=== PATIENT | male | born 1960 | race Caucasian/White ===

== ENCOUNTER 2021-06-22 12:55 | Inpatient (IN) | payer OTHER ==
[2021-06-22] MEDS ORDERED: diazePAM 5 MG TABLET PO PRN (13:10)
[2021-06-22] MEDS ORDERED: MAGNESIUM HYDROX 2400MG/30ML ORAL SUSPENSION 30 ML CUP PO PRN (13:10)
[2021-06-22] MEDS ORDERED: ACETAMINOPHEN 325 MG TABLET (FP) PO PRN ×2 (13:10)
[2021-06-22] MEDS ORDERED: MAG HYDROX/AL HYDROX/SIMETH 30 ML UNIT-DOSE CUP PO PRN (13:10)
[2021-06-22] MEDS ORDERED: BISMUTH SUBSALICYLATE 524 MG/30 ML PO PRN (13:10)
[2021-06-22] MEDS ORDERED: DICYCLOMINE HCL 10 MG CAPSULE PO PRN (13:10)
[2021-06-22] MEDS ORDERED: METHOCARBAMOL 500 MG TABLET PO PRN (13:10)
[2021-06-22] MEDS ORDERED: IBUPROFEN 400 MG TABLET (FP) PO PRN (13:10)
[2021-06-22] MEDS ORDERED: LOPERAMIDE HCL 2 MG CAPSULE PO PRN (13:10)
[2021-06-22] MEDS ORDERED: MAGNESIUM CITRATE 300 ML BOTTLE PO PRN (13:10)
[2021-06-22] MEDS ORDERED: BENZOCAINE/MENTHOL (CHLORASEPTIC ) LOZENGE MM PRN (13:10)
[2021-06-22] MEDS ORDERED: NICOTINE 10 MG CARTRIDGE (INHALER) IH PRN (13:10)
[2021-06-22] MEDS ORDERED: ONDANSETRON *ODT* 4 MG TABLET SL PRN (13:10)
[2021-06-22 13:41] VITALS: BMI 23.7
[2021-06-22 15:43] LABS: HEMATOCRIT 36.9 % (35.4-49); HEMOGLOBIN 12.3 GM/dL (11.7-16.9); MCH 31.4 pg (25.7-33.7); MCHC 33.3 g/dl (32.0-35.9); MEAN CELL VOLUME 94.3 fl (80-96); MEAN PLT VOLUME 9.5 fl (7.5-11.1); PLATELET COUNT 196 10^3/uL (134-434); RBC 3.91 M/mm3 (4.00-5.60); RDW 14.7 % (11.9-15.9); WHITE BLOOD COUNT 7.7 K/mm3 (4.0-10.0)
[2021-06-22 15:48] LABS: CALCIUM 9.4 mg/dL (8.5-10.1)
[2021-06-22 15:49] LABS: BLOOD UREA NITROGEN 11.9 mg/dL (7-18)
[2021-06-22 15:52] LABS: CREATININE 0.7 mg/dL (0.55-1.3)
[2021-06-22 15:54] LABS: BILIRUBIN,TOTAL 0.9 mg/dL (0.2-1); TOT PROT 7.6 g/dl (6.4-8.2)
[2021-06-22] MEDS: PRENATAL VITAMINS W/ FOLIC ACID TABLET (FP) PO SCH (17:41)
[2021-06-22] MEDS: hydrOXYzine PAMOATE 25 MG CAPSULE (FP) PO SCH ×3 (17:42→22:32)
[2021-06-22] MEDS: NICOTINE 14 MG/24 HOURS TOPICAL PATCH TD SCH (17:42)
[2021-06-22] MEDS: diazePAM 5 MG TABLET PO SCH ×2 (17:42→22:32)
[2021-06-22] MEDS ORDERED: MELATONIN 5 MG TABLETS PO SCH (22:00)
[2021-06-22] MEDS ORDERED: THIAMINE HCL 100 MG TABLET (FP) PO SCH (22:00)
[2021-06-23] MEDS: diazePAM 5 MG TABLET PO SCH ×3 (06:34→18:05)
[2021-06-23] MEDS: hydrOXYzine PAMOATE 25 MG CAPSULE (FP) PO SCH ×4 (06:35→18:05)
[2021-06-23] MEDS: NICOTINE 14 MG/24 HOURS TOPICAL PATCH TD SCH (12:03)
[2021-06-23] MEDS: PRENATAL VITAMINS W/ FOLIC ACID TABLET (FP) PO SCH (12:03)
[2021-06-23 16:50] VITALS: BP 102/57; PULSE 73; TEMP 97.5
[2021-06-24] MEDS ORDERED: diazePAM 5 MG TABLET PO SCH (06:00)
[2021-06-25] MEDS ORDERED: diazePAM 5 MG TABLET PO SCH (06:00)
[2021-06-26] MEDS ORDERED: diazePAM 5 MG TABLET PO ONE (06:00)
== END 2021-06-23 19:30 | disposition left against medical advice (07) | DRG 894 ==
LOC: YASAS 12:55 → Y3N 14:02
PROVIDERS: ADMIT Allergy & Immunology; ATTEND Surgery
PROC: HZ2ZZZZ Detoxification Services for Substance Abuse Treatment (ICD-10-PCS; principal; 2021-06-22)
DX: F10.230 Alcohol dependence with withdrawal, uncomplicated (principal); R74.01 Elevation of levels of liver transaminase levels
CPT/HCPCS: 36415; 80053; 83036; 85027; 86780; 93005; 93010; C9803-CS; U0003; U0005